=== PATIENT | male | born 1975 | race Hispanic/Latino ===

== ENCOUNTER → 2023-07-29 | Outpatient (CLI) | payer OTHER, MEDICARE | END | disposition home or self-care (01) | LOC: RAH 13:24 | PROVIDERS: ATTEND Family Medicine | DX: G45.9 Transient cerebral ischemic attack, unspecified (principal) | CPT/HCPCS: 70450 ==

== ENCOUNTER → 2023-08-16 | Outpatient (CLI) | payer OTHER, MEDICARE ==
[~2023-08-16] MED LIST: IOHEXOL-350 75 ML VIAL IV ONE
== END | disposition home or self-care (01) ==
LOC: RAH 08:06 → EDUNIT# 09:00
PROVIDERS: ATTEND Family Medicine
DX: G45.9 Transient cerebral ischemic attack, unspecified (principal)
CPT/HCPCS: 70496; 70498; Q9967

== ENCOUNTER → 2025-01-01 | Outpatient (CLI) | payer OTHER, MEDICARE ==
[2025-01-01 10:26] LABS: IMMATURE GRANULOCYTE ABSOLUTE 0.01 K/uL (0-1); NUCLEATED RED BLOOD CELLS 0.0 % (0.0-0.19); PLATELET COUNT (AUTO) 197 K/uL (130-400); RED BLOOD CELL COUNT(AUTO) 4.30 MIL/uL (4.50-6.20); RED CELL DISTRIBUTION WIDTH 13.4 % (11.0-15.5); WHITE BLOOD COUNT (AUTO) 5.4 K/uL (4.8-10.8)
[2025-01-01 10:40] LABS: ASPARTATE AMINOTRANSFERASE 13.0 U/L (10-37); CREATININE 1.2 mg/dL (0.5-1.3); GLOMERULAR FILTR. RATE CALC 73.0 mL/min (>90); GLUCOSE,RANDOM 134.0 mg/dL (70-105); LDL DIRECT 66.0 mg/dL (0-99); SODIUM SERUM 142.0 mmol/L (136-145); TOTAL PROTEIN, SERUM 7.3 g/dL (6.0-8.3); UREA NITROGEN, BLOOD 24.0 mg/dL (7-18)
== END | disposition home or self-care (01) ==
LOC: LAB 09:36
PROVIDERS: ATTEND Internal Medicine Cardiovascular Disease
DX: E78.2 Mixed hyperlipidemia (principal); I10 Essential (primary) hypertension; M79.662 Pain in left lower leg; R00.2 Palpitations; R06.09 Other forms of dyspnea; R42 Dizziness and giddiness; Z79.899 Other long term (current) drug therapy
CPT/HCPCS: 36415; 80053; 80061; 83036; 83880; 85025; 86140

== ENCOUNTER → 2025-01-05 | Outpatient (CLI) | payer OTHER, MEDICARE ==
--- NOTE | 2025-01-06 11:58 | HMCIMG ---
EXAMINATION: DUPLEX ULTRASOUND EXAMINATION OF THE BILATERAL CAROTID AND VERTEBRAL ARTERIES. CLINICAL HISTORY: Orthostatic hypertension. COMPARISON: None provided. TECHNIQUE: Real-time ultrasound scan of the bilateral carotid and vertebral arteries, 2-D grayscale, with color Doppler flow and spectral waveform analysis. FINDINGS: Color and spectral Doppler interrogation of the carotid vessels on the right demonstrate peak systolic velocities as follows: CCA (Proximal and distal): 92 and 72 cm/s respectively. Bulb: 71 cm/s. ECA: 142 cm/s. ICA (Proximal, mid, and distal): 71, 79, and 81 cm/s respectively. Vertebral artery demonstrates antegrade flow: 33 cm/s. Right ICA/CCA ratio: 1.1 Peak systolic velocities on the left are as follows: CCA (Proximal and distal): 74 and 77 cm/s respectively. Bulb: 62 cm/s. ECA: 140 cm/s. ICA (Proximal, mid, and distal): 106, 105, and 85 cm/s respectively. Vertebral artery demonstrates antegrade flow: 40 cm/s. Left ICA/CCA ratio: 1.4 Both the common carotid arteries and their branches reveal mild intimal thickening. There is soft plaque in the right bulb causing about 10% to 20% diameter stenosis. There is a calcified plaque in the left bulb/proximal internal carotid artery causing about 30% to 40% diameter stenosis. IMPRESSION: Mild intimal thickening in the bilateral carotid arteries and their branches. Plaques as described. There is no significant flow limiting lesions in the remainder of the arteries. /[place]
== END | disposition home or self-care (01) ==
LOC: RAH 14:00
PROVIDERS: ATTEND Family Medicine
DX: I25.10 Atherosclerotic heart disease of native coronary artery without angina pectoris (principal); I95.1 Orthostatic hypotension; I10 Essential (primary) hypertension
CPT/HCPCS: 93880